=== PATIENT | male | born 1990 ===

== ENCOUNTER 2018-10-25 01:20 | Emergency (ER) | payer BC, MEDICAID ==
[2018-10-25] MEDS ORDERED: MVI, Adult with Vitamin K 10 ML, Folic Acid 1 MG, Thiamine 100 MG in Lactated Ringers 1... IV ONE ×4 (01:27)
--- NOTE | 2018-10-25 01:40 | EDM.PDOC ---
ED HPI GENERAL MEDICAL PROBLEM - General Chief Complaint: Drug or Alcohol Abuse Stated Complaint: UNKNOWN Time Seen by Provider: 10/25/18 01:30 Source of Information: Reports: Patient, Police History Limitations: Reports: Intoxication - History of Present Illness INITIAL COMMENTS - FREE TEXT/NARRATIVE: ED via [employer], patient reported to have passed out in a drive way. Admits to drinking tonight "a couple". Offers little history. Officer unfamiliar with patient. Able to get out of vehicle on own, Unsteady gait. No obvious signs of trauma. Strong odor ETOH, Multiple question attempts for hx. Patient states he is' not talking" - Related Data Allergies Allergy/AdvReac Type Severity Reaction Status Date / Time No Known Allergies Allergy Verified 10/25/18 01:26 Home Meds: Home Meds . [No Known Home Meds] 10/25/18 [History] ED ROS GENERAL - Review of Systems Review Of Systems: ROS reveals no pertinent complaints other than HPI. - Physical Exam Exam: See Below Exam Limited By: Intoxication General Appearance: Alert, No Apparent Distress Eye Exam: Bilateral Eye: EOMI, PERRL (4mm) Ears: Normal External Exam, Hearing Grossly Normal Nose: Normal Inspection Throat/Mouth: Normal Inspection Head Exam: Atraumatic, Normocephalic Neck: Normal Inspection, Full Range of Motion Respiratory/Chest: No Respiratory Distress, Lungs Clear, Normal Breath Sounds Cardiovascular: Normal Peripheral Pulses, Regular Rate, Rhythm GI/Abdominal: Normal Bowel Sounds, Soft, Non-Tender Neuro Exam (Abbreviated): Alert, Oriented Back Exam: Full Range of Motion Extremities: Normal Inspection, Normal Range of Motion Psychiatric: Other (intoxicated, ) Skin Exam: Warm, Dry, Intact, Normal Color Course - Vital Signs Last Recorded V/S: Last Vital Signs Temp 96.4 F 10/25/18 01:27 Pulse 97 10/25/18 01:27 Resp 18 10/25/18 01:27 BP 144/84 H 10/25/18 01:27 Pulse Ox 95 10/25/18 01:27 - Orders/Labs/Meds Orders: Active Orders 24 hr Category Date Time Status AMMONIA VENOUS [CHEM] Stat Lab 10/25/18 04:36 Ordered Labs: Laboratory Tests 10/25/18 10/25/18 10/25/18 Range/Units 01:35 01:35 01:47 WBC 10.7 H (5.0-10.0) 10^3/uL RBC 5.88 (4.6-6.2) 10^6/uL Hgb 18.8 H (14.0-18.0) g/dL Hct 52.7 (40.0-54.0) % MCV 89.6 (80-100) fL MCH 32.0 (27.0-34.0) pg MCHC 35.7 H (33.0-35.0) g/dL Plt Count 268 (150-450) 10^3/uL Neut % (Auto) 42.6 (42.2-75.2) % Lymph % (Auto) 45.2 (20.5-50.1) % Sebastian % (Auto) 8.7 H (2-8) % Eos % (Auto) 3.2 H (1.0-3.0) % Baso % (Auto) 0.3 (0.0-1.0) % Sodium 140 (135-145) mmol/L Potassium 3.7 (3.6-5.0) mmol/L Chloride 110 (101-111) mmol/L Carbon Dioxide 19.0 L (21.0-31.0) mmol/L Anion Gap 14.7 BUN 12 (7-18) mg/dL Creatinine 0.8 (0.6-1.3) mg/dL Est Cr Clr Drug Dosing 152.24 mL/min Estimated GFR (MDRD) > 60 BUN/Creatinine Ratio 15.00 Glucose 128 H (74-105) mg/dL Calcium 8.3 L (8.4-10.2) mg/dl Total Bilirubin 0.7 (0.2-1.0) mg/dL AST 221 H (10-42) IU/L ALT 504 H (10-60) IU/L Alkaline Phosphatase 130 H (42-121) IU/L Total Protein 9.0 H (6.7-8.2) g/dl Albumin 4.8 (3.2-5.5) g/dl Globulin 4.2 Albumin/Globulin Ratio 1.14 Amylase 75 (28-100) U/L Urine Opiates Screen Negative (NEGATIVE) Ur Oxycodone Screen Negative (NEGATIVE) Urine Methadone Screen Negative (NEGATIVE) Ur Barbiturates Screen Negative (NEGATIVE) U Tricyclic Antidepress Negative (NEGATIVE) Ur Phencyclidine Scrn Negative (NEGATIVE) Ur Amphetamine Screen Negative (NEGATIVE) U Methamphetamines Scrn Negative (NEGATIVE) Urine MDMA Screen Negative (NEGATIVE) U Benzodiazepines Scrn Negative (NEGATIVE) Urine Cocaine Screen Negative (NEGATIVE) U Marijuana (THC) Screen Negative (NEGATIVE) Ethyl Alcohol 418 mg/dL 10/25/18 Range/Units 02:52 WBC (5.0-10.0) 10^3/uL RBC (4.6-6.2) 10^6/uL Hgb (14.0-18.0) g/dL Hct (40.0-54.0) % MCV (80-100) fL MCH (27.0-34.0) pg MCHC (33.0-35.0) g/dL Plt Count (150-450) 10^3/uL Neut % (Auto) (42.2-75.2) % Lymph % (Auto) (20.5-50.1) % Sebastian % (Auto) (2-8) % Eos % (Auto) (1.0-3.0) % Baso % (Auto) (0.0-1.0) % Sodium (135-145) mmol/L Potassium (3.6-5.0) mmol/L Chloride (101-111) mmol/L Carbon Dioxide (21.0-31.0) mmol/L Anion Gap BUN (7-18) mg/dL Creatinine (0.6-1.3) mg/dL Est Cr Clr Drug Dosing mL/min Estimated GFR (MDRD) BUN/Creatinine Ratio Glucose (74-105) mg/dL Calcium (8.4-10.2) mg/dl Total Bilirubin (0.2-1.0) mg/dL AST (10-42) IU/L ALT (10-60) IU/L Alkaline Phosphatase (42-121) IU/L Total Protein (6.7-8.2) g/dl Albumin (3.2-5.5) g/dl Globulin Albumin/Globulin Ratio Amylase (28-100) U/L Urine Opiates Screen (NEGATIVE) Ur Oxycodone Screen (NEGATIVE) Urine Methadone Screen (NEGATIVE) Ur Barbiturates Screen (NEGATIVE) U Tricyclic Antidepress (NEGATIVE) Ur Phencyclidine Scrn (NEGATIVE) Ur Amphetamine Screen (NEGATIVE) U Methamphetamines Scrn (NEGATIVE) Urine MDMA Screen (NEGATIVE) U Benzodiazepines Scrn (NEGATIVE) Urine Cocaine Screen (NEGATIVE) U Marijuana (THC) Screen (NEGATIVE) Ethyl Alcohol 379 mg/dL Meds: Medications Discontinued Medications Generic Name Dose Route Start Last Admin Trade Name Aixa PRN Reason Stop Dose Admin Multivitamins/Minerals 10 ml/ 1,011.2 mls @ 999 mls/hr 10/25/18 01:27 01:40 Folic Acid 1 mg/ Thiamine HCl IV 10/25/18 02:27 999 mls/hr 100 mg/ Lactated Ringer's ONETIME ONE Administration - Re-Assessments/Exams Free Text/Narrative Re-Assessment/Exam: Dozing, arouses easily, Uncooperative, but redirectable to comply with instructions. Departure - Departure Time of Disposition: 05:02 Disposition: Home, Self-Care 01 Condition: Good Clinical Impression: Alcohol abuse, Elevated LFTs Alcohol intoxication Qualifiers: Complication of substance-induced condition: uncomplicated Qualified Code(s): F10.920 - Alcohol use, unspecified with intoxication, uncomplicated - Discharge Information *PRESCRIPTION DRUG MONITORING PROGRAM REVIEWED*: Not Applicable *COPY OF PRESCRIPTION DRUG MONITORING REPORT IN PATIENT PATRICK: Not Applicable Instructions: Alcohol Use Disorder Forms: ED Department Discharge Additional Instructions: Close watch detox recommend follow up /consult addiction services when sober follow up primary care regarding elevated liver studies on labs - My Orders Last 24 Hours: My Active Orders 10/25/18 04:36 AMMONIA VENOUS [CHEM] Stat - Assessment/Plan Last 24 Hours: My Active Orders 10/25/18 04:36 AMMONIA VENOUS [CHEM] Stat
[2018-10-25 02:05] LABS: ANION GAP 14.7; CHLORIDE,CL 110 mmol/L (101-111); SODIUM,NA 140 mmol/L (135-145)
== END 2018-10-25 05:25 | disposition home or self-care (01) ==
LOC: DL.ED 01:20
DX: F10.129 Alcohol abuse with intoxication, unspecified (principal); Y90.8 Blood alcohol level of 240 mg/100 ml or more; R79.89 Other specified abnormal findings of blood chemistry
CPT/HCPCS: 36415; 80053; 80305; 82140; 82150; 85025; 96365; 99284; G0480; J3411; J7120; J3490

== ENCOUNTER 2019-12-21 15:29 | Emergency (ER) | payer BC, OTHER ==
[2019-12-21 16:27] LABS: ANION GAP 17.7 mEq/L (7-13); CHLORIDE,CL 104 mmol/L (98-107); SODIUM,NA 145 mmol/L (136-145)
--- NOTE | 2019-12-21 16:27 | CR ---
PROCEDURE INFORMATION: Exam: XR Chest, 2 Views Exam date and time: 12/21/2019 4:08 PM Age: 29 years old Clinical indication: Other: Chest pain TECHNIQUE: Imaging protocol: XR of the chest Views: 2 views. COMPARISON: No relevant prior studies available. FINDINGS: Lungs: Unremarkable. No consolidation. Pleural space: Unremarkable. No pleural effusion. No pneumothorax. Heart/Mediastinum: Unremarkable. No cardiomegaly. Bones/joints: Age appropriate. IMPRESSION: No active disease of the chest.
--- NOTE | 2019-12-21 16:45 | EDM.PDOC ---
Scribed by Chika Tracy 12/21/19 [id number] for Thierry Marie NP ED HPI GENERAL MEDICAL PROBLEM - General Chief Complaint: Chest Pain Stated Complaint: CHEST PAIN Time Seen by Provider: 12/21/19 15:42 Source of Information: Reports: Patient, RN, RN Notes Reviewed History Limitations: Reports: No Limitations - History of Present Illness INITIAL COMMENTS - FREE TEXT/NARRATIVE: A 29-year-old male who presents to the ER with complaint of chest pain x4 days. He states he has been drinking in the last 4 days to forget his pain. He reports a history of heart disease, but has never been diagnosed. HE cannot rate his pain nor describe it. He keeps saying the pain is there. No other complaints at this time. No nausea, vomiting, shortness of breath, palpitations, headaches, diaphoresis, dizziness. Onset Date: 12/17/19 Duration: Constant Location: Reports: Chest Quality: Reports: Ache Severity: Moderate Improves with: Reports: None Worsens with: Reports: None Associated Symptoms: Reports: No Other Symptoms Left Chest Pain Score (Numeric/FACES): 10 - Related Data Allergies Allergy/AdvReac Type Severity Reaction Status Date / Time No Known Allergies Allergy Verified 12/21/19 15:47 Home Meds: Home Meds . [No Known Home Meds] 10/25/18 [History] Social & Family History - Caffeine Use Caffeine Use: Reports: None ED ROS GENERAL - Review of Systems Review Of Systems: Comprehensive ROS is negative, except as noted in HPI. ED EXAM, GENERAL - Physical Exam Exam: See Below Exam Limited By: No Limitations General Appearance: Alert, WD/WN, No Apparent Distress Eye Exam: Bilateral Eye: Normal Inspection, PERRL Ears: Normal External Exam, Normal Canal, Hearing Grossly Normal, Normal TMs Nose: Normal Inspection, Normal Mucosa, No Blood Throat/Mouth: Normal Inspection, Normal Lips, Normal Gums, Normal Oropharynx, Normal Voice, No Airway Compromise Head: Atraumatic, Normocephalic Neck: Normal Inspection, Supple, Non-Tender, Full Range of Motion Respiratory/Chest: No Respiratory Distress, Lungs Clear, Normal Breath Sounds, No Accessory Muscle Use, Chest Non-Tender Cardiovascular: Normal Peripheral Pulses, Regular Rate, Rhythm, No Edema, No Gallop, No JVD, No Murmur, No Rub GI/Abdominal: Normal Bowel Sounds, Soft, Non-Tender, No Organomegaly, No Distention, No Abnormal Bruit, No Mass (Male) Exam: Deferred Rectal (Males) Exam: Deferred Back Exam: Normal Inspection, Full Range of Motion, NT Extremities: Normal Inspection, Normal Range of Motion, Non-Tender, Normal Capillary Refill, No Pedal Edema Neurological: Oriented, CN II-XII Intact, Normal Gait Psychiatric: Flat Affect Skin Exam: Warm, Intact Lymphatic: No Adenopathy EKG INTERPRETATION EKG Date: 12/21/19 Time: 15:41 Rhythm: Other (sinus rhythm) Rate (Beats/Min): 83 [place]: Other (left anterior fascicular block) Course - Vital Signs Last Recorded V/S: Last Vital Signs Temp 97.8 F 12/21/19 15:39 Pulse 109 H 12/21/19 15:39 Resp 12 12/21/19 15:39 BP 153/95 H 12/21/19 15:39 Pulse Ox 95 12/21/19 15:39 - Orders/Labs/Meds Orders: Active Orders 24 hr Category Date Time Status EKG 12 Lead [EKG Documentation Completion] [RC] URGENT Care 12/21/19 15:55 Ordered Labs: Laboratory Tests 12/21/19 12/21/19 12/21/19 Range/Units 15:59 15:59 16:18 WBC 7.8 (5.0-10.0) 10^3/uL RBC 5.37 (4.6-6.2) 10^6/uL Hgb 17.2 D (14.0-18.0) g/dL Hct 48.0 (40.0-54.0) % MCV 89.4 (80-100) fL MCH 32.0 (27.0-34.0) pg MCHC 35.8 H (33.0-35.0) g/dL Plt Count 310 (150-450) 10^3/uL Neut % (Auto) 49.4 (42.2-75.2) % Lymph % (Auto) 40.3 (20.5-50.1) % [place] % (Auto) 6.9 (2-8) % Eos % (Auto) 3.3 H (1.0-3.0) % Baso % (Auto) 0.1 (0.0-1.0) % Sodium 145 (136-145) mmol/L Potassium 3.7 (3.5-5.1) mmol/L Chloride 104 (98-107) mmol/L Carbon Dioxide 27 (21-32) mmol/L Anion Gap 17.7 H (7-13) mEq/L BUN 8 (7-18) mg/dL Creatinine 1.14 (0.70-1.30) mg/dL Est Cr Clr Drug Dosing 102.75 mL/min Estimated GFR (MDRD) > 60 BUN/Creatinine Ratio 7.0 (No establ ref range) Glucose 120 H (74-99) mg/dL Calcium 8.0 L (8.5-10.1) mg/dL Total Bilirubin 0.4 (0.2-1.0) mg/dL AST 42 H (15-37) U/L ALT 71 H (16-63) U/L Alkaline Phosphatase 128 H (46-116) U/L Troponin I < 0.017 (0.000-0.056) ng/mL Total Protein 8.4 H (6.4-8.2) g/dL Albumin 3.9 (3.4-5.0) g/dL Globulin 4.5 Albumin/Globulin Ratio 0.9 Urine Opiates Screen Negative (NEGATIVE) Ur Oxycodone Screen Negative (NEGATIVE) Urine Methadone Screen Negative (NEGATIVE) Ur Barbiturates Screen Negative (NEGATIVE) U Tricyclic Antidepress Negative (NEGATIVE) Ur Phencyclidine Scrn Negative (NEGATIVE) Ur Amphetamine Screen Negative (NEGATIVE) U Methamphetamines Scrn Negative (NEGATIVE) Urine MDMA Screen Negative (NEGATIVE) U Benzodiazepines Scrn Negative (NEGATIVE) Urine Cocaine Screen Negative (NEGATIVE) U Marijuana (THC) Screen Negative (NEGATIVE) Ethyl Alcohol 352 (0) mg/dL - Radiology Interpretation Free Text/Narrative:: Chest x-ray: No active disease of the chest. See rad report. - Re-Assessments/Exams Free Text/Narrative Re-Assessment/Exam: Reviewed lab, EKG and x-ray findings with the patient. Offered detox and he declined. He has a ride to go home. Will follow up with PCP. Encouraged to stop drinking. Departure - Departure Time of Disposition: 16:43 Disposition: Home, Self-Care 01 Condition: Good Clinical Impression: Alcohol abuse, Atypical chest pain Instructions: Alcohol Use Disorder, Nonspecific Chest Pain, Adult, Lent-ke-Lylc Forms: ED Department Discharge Additional Instructions: Encouraged to stop drinking alcohol. Follow up with PCP. Sepsis Event Note (ED) - Evaluation Sepsis Screening Result: No Definite Risk - Focused Exam Vital Signs: Vital Signs Temp Pulse Resp BP Pulse Ox 12/21/19 15:39 97.8 F 109 H 12 153/95 H 95 - My Orders Last 24 Hours: My Active Orders 12/21/19 15:55 EKG 12 Lead [EKG Documentation Completion] [RC] URGENT - Assessment/Plan Last 24 Hours: My Active Orders 12/21/19 15:55 EKG 12 Lead [EKG Documentation Completion] [RC] URGENT I have read and agree with the documentation that has been completed regarding this visit. By signing this record, I attest that the documentation was completed in my physical presence and is an accurate record of the encounter.
== END 2019-12-21 16:50 | disposition home or self-care (01) ==
LOC: DL.ED 15:29
DX: R07.89 Other chest pain (principal); F10.10 Alcohol abuse, uncomplicated; Y90.8 Blood alcohol level of 240 mg/100 ml or more
CPT/HCPCS: 36415; 71046; 80053; 80305-QW; 80307; 84484; 85025; 93005; 99285-25

== ENCOUNTER 2020-07-28 11:34 | Emergency (ER) | payer BC | END 2020-07-28 14:21 | disposition home or self-care (01) | LOC: DL.ED 11:34 | DX: Z53.21 Procedure and treatment not carried out due to patient leaving prior to being seen by health care provider (principal) ==

== ENCOUNTER 2021-07-23 09:45 | Emergency (ER) | payer BC ==
[2021-07-23 12:27] LABS: CHLORIDE,CL 88 mmol/L (98-107); SODIUM,NA 130 mmol/L (136-145)
[2021-07-23 12:55] LABS: AMPHETAMINES,URINE NEGATIVE (NEGATIVE); BARBITURATES,URINE NEGATIVE (NEGATIVE); BENZODIAZEPINE,URINE NEGATIVE (NEGATIVE); MDMA (ECSTASY), URINE NEGATIVE (NEGATIVE); METHADONE,URINE NEGATIVE (NEGATIVE); METHAMPHETAMINES,URINE NEGATIVE (NEGATIVE); OPIATES,URINE NEGATIVE (NEGATIVE); OXYCODONE,URINE NEGATIVE (NEGATIVE); PHENCYCLIDINE,URINE NEGATIVE (NEGATIVE); TCA,URINE NEGATIVE (NEGATIVE)
[2021-07-23] MEDS ORDERED: Ondansetron 4 MG/2 ML SDV IVPUSH ONE (13:36)
[2021-07-23] MEDS ORDERED: Pantoprazole 40 MG Vial IVPUSH ONE (13:36)
[2021-07-23] MEDS ORDERED: LORazepam 2 MG/ML SDV IVPUSH ONE (13:36)
[2021-07-23] MEDS ORDERED: MVI, Adult with Vitamin K 10 ML, Folic Acid 1 MG, Thiamine 100 MG in Lactated Ringers 1... IV ONE ×4 (13:38)
[2021-07-23 15:29] LABS: CORONAVIRUS COVID-19 NAA POSITIVE (NEGATIVE)
== END 2021-07-23 15:48 | disposition home or self-care (01) ==
LOC: DL.ED 09:45
DX: U07.1 COVID-19 (principal); R10.10 Upper abdominal pain, unspecified; F10.230 Alcohol dependence with withdrawal, uncomplicated; Z72.0 Tobacco use; Z20.822 Contact with and (suspected) exposure to COVID-19; Y90.5 Blood alcohol level of 100-119 mg/100 ml
CPT/HCPCS: 0240U; 36415; 74018; 80053; 80305; 80307; 81001; 82150; 83690; 85025; 96365; 96375; 99284; C9113; J2060; J2405; J3411; J7120; J3490

== ENCOUNTER 2021-09-27 13:51 | Emergency (ER) | payer BC ==
[2021-09-27 14:40] LABS: CHLORIDE,CL 101 mmol/L (98-107); SODIUM,NA 137 mmol/L (136-145)
== END 2021-09-27 14:57 | disposition home or self-care (01) ==
LOC: DL.ED 13:51
DX: I95.9 Hypotension, unspecified (principal); Z79.899 Other long term (current) drug therapy
CPT/HCPCS: 36415; 80053; 85025; 99283; 99284

== ENCOUNTER 2022-07-16 00:40 | Emergency (ER) | payer BC | END 2022-07-16 01:41 | disposition home or self-care (01) | LOC: DL.ED 00:40 | DX: F10.920 Alcohol use, unspecified with intoxication, uncomplicated (principal); I10 Essential (primary) hypertension | CPT/HCPCS: 36415; 80307; 99282; 99283 ==

== ENCOUNTER 2022-09-18 08:24 | Emergency (ER) | payer BC ==
[2022-09-18] MEDS ORDERED: Iopamidol 612 MG/ML 100 ML Bottle IVPUSH ONE (09:02)
[2022-09-18] MEDS ORDERED: MVI, Adult with Vitamin K 10 ML, Folic Acid 1 MG, Thiamine 100 MG in Lactated Ringers 1... IV ONE ×4 (09:33)
[2022-09-18 09:36] LABS: PTT,PARTIAL THROMBOPLSTIN TIME 24.2 SEC (22.0-34.0)
[2022-09-18] MEDS ORDERED: levETIRAcetam in NaCl (iso-os) 1,500 MG in Premix Bag 1 BAG IV ONE ×2 (09:36)
[2022-09-18] MEDS: Sodium Chloride 0.9% 10 ML Syringe FLUSH PRN ×4 (09:42→11:36)
[2022-09-18 09:46] LABS: ANION GAP 28.8 mEq/L (7-13); CHLORIDE,CL 90 mmol/L (98-107); SODIUM,NA 128 mmol/L (136-145)
[2022-09-18 10:05] LABS: ESTIMATED GFR 70 mL/min (>=60)
[2022-09-18] MEDS ORDERED: Sodium Chloride 0.9% 1,000 ML IV ONE (10:20)
[2022-09-18] MEDS ORDERED: Potassium Chloride 20 MEQ in Premix Bag 1 BAG IV ONE (10:26)
[2022-09-18] MEDS ORDERED: Desmopressin 4 MCG/1 ML Amp SUBCUT ONE (11:18)
[2022-09-18] MEDS ORDERED: Desmopressin 4 MCG/1 ML Amp IV ONE (11:30)
[2022-09-18] MEDS ORDERED: Sodium Chloride 3% 300 ML IV SCH (11:30)
[2022-09-18 12:29] LABS: AMPHETAMINES,URINE NEGATIVE (NEGATIVE); BARBITURATES,URINE NEGATIVE (NEGATIVE); BENZODIAZEPINE,URINE NEGATIVE (NEGATIVE); MDMA (ECSTASY), URINE NEGATIVE (NEGATIVE); METHADONE,URINE NEGATIVE (NEGATIVE); METHAMPHETAMINES,URINE NEGATIVE (NEGATIVE); OPIATES,URINE NEGATIVE (NEGATIVE); OXYCODONE,URINE NEGATIVE (NEGATIVE); PHENCYCLIDINE,URINE NEGATIVE (NEGATIVE); TCA,URINE NEGATIVE (NEGATIVE)
== END 2022-09-18 12:53 ==
LOC: DL.ED 08:24
DX: S06.5X0A Traumatic subdural hemorrhage without loss of consciousness, initial encounter (principal); S05.41XA Penetrating wound of orbit with or without foreign body, right eye, initial encounter; S80.01XA Contusion of right knee, initial encounter; S80.02XA Contusion of left knee, initial encounter; S40.021A Contusion of right upper arm, initial encounter; H11.31 Conjunctival hemorrhage, right eye; K72.00 Acute and subacute hepatic failure without coma; N17.9 Acute kidney failure, unspecified; I10 Essential (primary) hypertension; E87.1 Hypo-osmolality and hyponatremia; E87.6 Hypokalemia; R74.8 Abnormal levels of other serum enzymes; R79.82 Elevated C-reactive protein (CRP)
CPT/HCPCS: 36415; 70450; 70486; 71260; 72125; 73060-RT; 73090-RT; 74177; 80053; 80305-QW; 80307; 81001; 82150; 82550; 83605; 83690; 83735; 85025; 85610; 85730; 96365; 96367; 96375; 99285; 99285-25; J1953; J2597; J3411; J3480; J3490; J7030; J7040; J7120; Q9967